=== PATIENT | male | born 1960 | race Caucasian/White ===

== ENCOUNTER 2019-10-04 06:12 | Day surgery (SDC) ==
--- NOTE | 2019-09-27 08:32 | EKG Report ---
Test Performed on : 09/27/2019 08:18:53 AM Test Reason : PAT Blood Pressure : / mmHG Vent. Rate : 052 BPM Atrial Rate : 052 BPM P-R Int : 242 ms QRS Dur : 114 ms QT Int : 436 ms P-R-T Axes : 036 031 054 degrees QTc Int : 405 ms Sinus bradycardia. with 1st degree AV block. Otherwise normal ECG No previous ECGs available Confirmed by Norberto Christianson MD ([id number]) on 09/28/2019 9:14:33 PM
[2019-09-27 09:01] LABS: URINE SOURCE CLEAN CATCH
[2019-09-27 09:12] LABS: BASO# 0.03 X1000 (0.0-0.2); BASO% 0.4 % (0.0-0.8); BILIRUBIN URINE NEGATIVE (NEGATIVE); BLOOD URINE NEGATIVE (NEGATIVE); COLOR YELLOW; EOS# 0.15 X1000 (0.0-0.7); EOS% 1.9 % (0.0-10.0); GLUCOSE URINE NEGATIVE (NEGATIVE); IMM GRAN# 0.02 X1000 (0.0-0.04); IMM GRAN% 0.3 % (0.0-0.5); KETONE URINE NEGATIVE (NEGATIVE); LEUKOCYTES URINE NEGATIVE (NEGATIVE); LYMPH% 42.7 % (20.5-51.1); MCH 29.2 PG (27-31); MCHC 32.6 g/dL (33-37); MCV 89.5 FL (81-99); MONO% 9.1 % (1.7-9.3); MPV 10.1 FL (7.4-10.4); NEUT# 3.52 X1000 (1.4-6.5); NEUT% 45.6 % (42.2-75.2); NITRITE URINE NEGATIVE (NEGATIVE); PLT 235 X1000 (130-400); PROTEIN URINE NEGATIVE (NEGATIVE); RBC 5.14 XMIL (4.7-6.1); RDW 13.8 % (11.5-14.5); SP GRAVITY URINE 1.023; TURBIDITY URINE CLEAR (CLEAR); UROBILINOGEN URINE NORMAL (NORMAL); WBC 7.72 X1000 (4.8-10.8)
[2019-09-27 09:14] LABS: UR EPITHELIAL CELLS <10 /HPF (<10); URINE BACTERIA NEGATIVE /HPF; URINE RBC <10 /HPF (<10); URINE WBC <10 /HPF (<10)
[2019-09-27 09:20] LABS: INR 1.01; PROTIME 13.4 Seconds (11.0-16.0)
[2019-09-27 09:21] LABS: PTT 28.8 Seconds (22.3-41.8)
[2019-09-27 09:31] LABS: AGAP 10; BUN 19 mg/dL (8-22); CALCIUM 9.2 mg/dL (8.8-10.2); CHLORIDE 106 mmol/L (98-107); COSMO 285; ESTIMATED GFR > 60; GLUCOSE 121 mg/dL (70-104); POTASSIUM 3.8 mmol/L (3.5-5.1); SODIUM 141 mmol/L (136-145); TCO2 25 mmol/L (25-35)
[2019-09-27 10:45] LABS: HEMOGLOBIN A1C 6.5 % (4.8-6.0)
[2019-10-04] MEDS ORDERED: COLACE ONE (06:38)
[2019-10-04] MEDS ORDERED: LYRICA ONE (06:39)
[2019-10-04] MEDS ORDERED: REGLAN ONE (06:39)
[2019-10-04] MEDS ORDERED: PEPCID ONE (06:39)
[2019-10-04] MEDS ORDERED: KEFZOL 1 GM/D5W 2 GM/100 ML IVPB ONE (06:40)
[2019-10-04] MEDS ORDERED: CELEBREX ONE (06:40)
[2019-10-04] MEDS ORDERED: LR 1,000 ML ONE (06:40)
[2019-10-04] MEDS ORDERED: DIPRIVAN 1% ONE ×3 (07:25→09:45)
[2019-10-04] MEDS ORDERED: DURAMORPH ONE (07:26)
[2019-10-04] MEDS ORDERED: TORADOL ONE (07:26)
[2019-10-04] MEDS ORDERED: MARCAINE 0.25% PF/EPI 1:200,000 ONE (07:27)
[2019-10-04] MEDS ORDERED: VANCOMYCIN ONE (07:27)
[2019-10-04] MEDS ORDERED: EXPAREL 1.3% ONE (07:27)
[2019-10-04] MEDS ORDERED: SODIUM CHLORIDE 0.9% ONE (07:27)
[2019-10-04] MEDS ORDERED: NEOSPORIN G.U. IRRIGANT ONE (07:27)
[2019-10-04] MEDS ORDERED: FENTANYL ONE (07:30)
[2019-10-04] MEDS ORDERED: ZOFRAN ONE (08:08)
[2019-10-04] MEDS ORDERED: OFIRMEV 1000 MG/ISOTONIC SOLN 1,000 MG/100 ML BOTTLE ONE (08:08)
[2019-10-04] MEDS ORDERED: DECADRON ONE (08:08)
[2019-10-04] MEDS ORDERED: ROBINUL ONE (08:12)
[2019-10-04] MEDS: CYKLOKAPRON 1,000 MG/NS 2,000 MG/200 ML IVPB ONE ×2 (08:19→09:32)
[2019-10-04] MEDS ORDERED: NEO-SYNEPHRINE ONE (08:33)
[2019-10-04] MEDS ORDERED: SODIUM CHLORIDE 0.9% 10 ML ONE (08:33)
[2019-10-04] MEDS ORDERED: EPHEDRINE ONE (08:33)
[2019-10-04] MEDS ORDERED: VERSED ONE (08:36)
[2019-10-04 09:10] LABS: URINE SOURCE CATH
[2019-10-04 09:13] LABS: BILIRUBIN URINE NEGATIVE (NEGATIVE); BLOOD URINE TRACE (NEGATIVE); COLOR YELLOW; GLUCOSE URINE NEGATIVE (NEGATIVE); KETONE URINE TRACE mg/dL (NEGATIVE); LEUKOCYTES URINE NEGATIVE (NEGATIVE); NITRITE URINE NEGATIVE (NEGATIVE); PROTEIN URINE TRACE mg/dL (NEGATIVE); SP GRAVITY URINE 1.029; TURBIDITY URINE CLEAR (CLEAR); UROBILINOGEN URINE NORMAL (NORMAL)
[2019-10-04 09:14] LABS: UR EPITHELIAL CELLS >10 /HPF (<10); URINE BACTERIA NEGATIVE /HPF; URINE RBC <10 /HPF (<10); URINE WBC <10 /HPF (<10)
[2019-10-04] MEDS ORDERED: NS 1,000 ML ONE (11:03)
--- NOTE | 2019-10-04 11:24 | Diag Imaging Result Doc PS360 ---
EXAM: KNEE 1-2 VIEWS-LEFT 10/04/2019 HISTORY: L TKA TECHNIQUE: Left knee two views COMMENT: There has been total knee arthroplasty. There is no evidence of fracture or other acute bony abnormality. IMPRESSION: Postsurgical changes. Electronically signed by Sukhdev Carpenter 10/04/2019 11:22 AM
[2019-10-04] MEDS ORDERED: MORPHINE IV PRN ×2 (12:00)
[2019-10-04] MEDS ORDERED: ZOFRAN PO PRN (12:00)
[2019-10-04] MEDS ORDERED: OXY IR PO PRN (12:00)
[2019-10-04] MEDS: NS 1,000 ML IV SCH ×3 (12:21→23:26)
[2019-10-04] MEDS: OXY IR PO PRN ×2 (12:33→23:21)
[2019-10-04] MEDS: TYLENOL PO SCH ×2 (15:15→20:15)
[2019-10-04] MEDS: KEFZOL 2 GM/D5W 2 GM/50 ML IVPB IV SCH ×2 (15:15→23:21)
--- NOTE | 2019-10-04 18:01 | OPERATIVE NOTE ---
PROCEDURE DATE: 10/04/2019 PREOPERATIVE DIAGNOSIS: Degenerative osteoarthritis of the right knee. POSTOPERATIVE DIAGNOSIS: Degenerative osteoarthritis of the right knee. PROCEDURE: Right total knee arthroplasty with a DePuy Attune size 8 cruciate retaining femur, a size 8 tibial tray, a 12 mm rotating platform tibial insert, and a 41 mm medialized anatomic patella. SURGEON: Dr. Fausto Maire. MARKET EDITOR: Delaney Baires, who was necessary for proper retraction and manipulation of the extremity during the case, and improved efficiency. SECOND [employer]ER BLASTING: Mychal Cooper. ANESTHESIA: Spinal. IV FLUIDS: 1000 mL lactated Ringer's. ESTIMATED BLOOD LOSS: 50 mL. TOURNIQUET TIME: 100 minutes at 300 mmHg. COMPLICATIONS: None. INDICATION: The patient is a 59-year-old male with chronic history of pain and discomfort of his right knee. He has continued pain and discomfort despite appropriate nonoperative treatment. X- rays revealed degenerative osteoarthritis. Recommendation to proceed with right total knee arthroplasty was offered. Risks and benefits of surgery were explained, including the risks of anesthesia, , bleeding, infection, failure to relieve pain, postoperative stiffness, nerve injury, blood clots, and other imponderables. All questions were answered. The patient and family wished to proceed with surgery. DETAILS OF OPERATION: The patient was taken to the operating room and underwent spinal anesthesia. After adequate anesthesia was obtained, he was placed supine on the operating table. Right lower extremity was subsequently prepped and draped in the usual sterile fashion. An Esmarch was used to exsanguinate the right lower extremity, and the tourniquet was inflated to 300 mmHg. Standard anterior incision was made with a skin knife. Medial and lateral skin envelopes were developed. Standard medial parapatellar arthrotomy was then performed. Patella fat pad was excised. Retractors were then placed. Approximately 1 cm anterior to the PCL insertion, a starting reamer was passed. Intramedullary guide with a distal femoral cutting block was pinned in position. Distal femoral cut was then performed. A sizing block was placed and measured a size 8. Corresponding size 8 cutting block was placed in position. Anterior, posterior, and chamfer cuts were then made. Attention was then turned to the proximal tibia where the extramedullary guide and proximal tibia cutting block were pinned in position. Had good alignment confirmed with the alignment suze. The proximal tibia was then resected. Medial and lateral menisci were excised. A curved osteotome was used to remove the posterior osteophytes of the distal femur. A spacer block was then placed and had good soft tissue balancing in both flexion and extension. Attention was turned to the proximal tibia where, using a size 8 tibial tray, it appeared to be the correct size. This was pinned in position. This was followed by a central reamer and a fin punch. The trial femoral component was then placed on the distal femur. Two lug holes were drilled. Trial tibial insert was then placed and had good soft tissue balancing. The patella was everted and resected in standard fashion. A size 41 appeared to be the correct size. Corresponding holes were drilled. The trial patella component was then placed and the knee was then carried through range of motion with good range of motion, good soft tissue balance, and good patellofemoral tracking. The trial components were then removed. Copious irrigation was then performed with antibiotic pulsatile lavage. Vancomycin was mixed with cement on the back table. Sequential cementing was then performed, first with the tibial tray and excess cement was removed with a [place], followed by the femoral component and excess cement was removed with a [place], followed by trial tibial insert in full extension and axial loading was maintained while cement cured. The patellar component was cemented in standard fashion. Patella clamp was placed. While cement was curing, Exparel was placed in the deep soft tissue as well as the subcutaneous tissue. After cement had cured, peripheral cement was removed with a small osteotome. The 12 mm rotating platform tibial insert appeared to be correct size. The trial insert was removed. Exparel was placed in the deep posterior capsule. The wound was copiously irrigated with antibiotic pulsatile lavage. The 12 mm rotating platform tibial insert was then placed. The knee was then carried through range of motion with good soft tissue balance, good range of motion, good patellofemoral tracking. A 0.018 Hemovac drain was placed and was not sewn in. Copious irrigation was then performed once again with antibiotic pulsatile lavage. A #1 Vicryl was then used to repair the arthrotomy, followed by 2-0 Vicryl to repair the subcutaneous tissue, and skin lupe. Adaptic, sterile 4 x 4s, Webril, cryo unit, and Augustus wrap were applied to the right lower extremity. Patient tolerated the procedure well and was transferred to the recovery room in stable condition. cc: Fausto Marie MD
[2019-10-04] MEDS: PERIDEX MT SCH (20:15)
[2019-10-04] MEDS: GLUCOPHAGE PO SCH (20:16)
[2019-10-04] MEDS: MORPHINE IV PRN ×2 (20:16→22:41)
[2019-10-04] MEDS ORDERED: PROMETRIUM PO SCH (21:00)
[2019-10-05] MEDS: TYLENOL PO SCH ×2 (02:33→08:15)
[2019-10-05] MEDS: OXY IR PO PRN ×2 (05:23→10:16)
[2019-10-05] MEDS ORDERED: XARELTO PO SCH (06:00)
[2019-10-05 06:55] LABS: AGAP 9; BUN 12 mg/dL (8-22); CALCIUM 8.3 mg/dL (8.8-10.2); CHLORIDE 105 mmol/L (98-107); COSMO 280; ESTIMATED GFR > 60; GLUCOSE 114 mg/dL (70-104); POTASSIUM 3.8 mmol/L (3.5-5.1); SODIUM 140 mmol/L (136-145); TCO2 26 mmol/L (25-35)
[2019-10-05 07:14] LABS: HEMATOCRIT 40.4 % (42.0-52.0); HEMOGLOBIN 13.5 g/dL (14.0-18.0)
--- NOTE | 2019-10-05 07:59 | ORTHOPAEDICS PROGRESS NOTE ---
DATE: 10/05/2019 SUBJECTIVE: Mr. Newman is postop day 1 of a left total knee arthroplasty. He is sitting up in bed at this time with no complaints at present. OBJECTIVE: Mr. Newman's dressing to his left knee is clean, dry, and intact. His drain has been removed this morning and there is no active bleeding from that site. There is no surrounding redness. He has active dorsiflexion and plantar flexion of his left foot. His calf is soft. His sensation is intact distally to his incision. His labs this morning reveal a hemoglobin and hematocrit of 13 and 40. ASSESSMENT: Postoperative day 1 of a left total knee arthroplasty. PLAN: Mr. Newman will be discharged home this morning after physical therapy. He is going to be taking oxycodone for pain and Xarelto for DVT prophylaxis. He will be following up with us in 2 weeks and we will remove his lupe at that time. All his questions were answered this morning. He will be completing his physical therapy at [facility] in [place] and he will start this tomorrow. Dictated by CONTRERAS Saavedra for Fausto Marie MD cc: Fausto Marie MD
[2019-10-05 08:00] VITALS: BP 150/82
[2019-10-05] MEDS: PERIDEX MT SCH (08:16)
[2019-10-05] MEDS: GLUCOPHAGE PO SCH (08:16)
[2019-10-05] MEDS ORDERED: PATIENT'S OWN MED PO SCH (09:00)
[2019-10-05] MEDS ORDERED: FOLIC ACID PO SCH (09:00)
[2019-10-05] MEDS ORDERED: FERROUS SULFATE PO SCH (09:00)
== END 2019-10-05 11:02 | disposition home or self-care (01) ==
LOC: OR 06:12 → 4N 06:12 → OR 10-05 11:02
PROVIDERS: ATTEND Orthopaedic Surgery Adult Reconstructive Orthopaedic Surgery